=== PATIENT | male | born 1960 | race Hispanic/Latino ===

== ENCOUNTER 2018-08-24 09:28 | Day surgery (SDC) | payer BC ==
[2018-08-24 09:29] VITALS: BMI 31.9
[2018-08-24] MEDS ORDERED: Sodium Chloride 0.9% 1,000 ML IV STA (09:42)
--- NOTE | 2018-08-24 09:49 | ED PDOC ---
Arrival/HPI - General Chief Complaint: Male Genitourinary Time Seen by Provider: 08/24/18 09:43 Historian: Patient - History of Present Illness Narrative History of Present Illness (Text): 08/24/18 09:47 58 y/o male, pmh including kidney stone, nkda, c/o rt. flank pain x 5 days. Pt. stated that he was diagnosed with 2mm ureter stone about 5 days ago, seen at the [facility] [place], following up with Dr. Lizette Flores and told to come to the ER today for KUB and further evaluation. Pt. stated that he had pain again on and off today, told to come to the ER for evaluation. Pt. has no fever or chills, no chest pain or shortness of breath, no night sweat, no rash, no dizziness, no change in vision, no other medical or psychological complaints. Past Medical History - Provider Review Nursing Documentation Reviewed: Yes - Infectious Disease Hx of Infectious Diseases: None - Tetanus Immunization Tetanus Immunization: Up to Date - Past Medical History Past Medical History: No Previous - Cardiac Hx Hypertension: Yes - Renal Hx Kidney Stones: Yes - Psychiatric Hx Depression: No Hx Substance Use: No - Past Surgical History Past Surgical History: No Previous - Surgical History Hx Orthopedic Surgery: Yes (Right shoulder replacement) - Suicidal Assessment Feels Threatened In Home Enviroment: No Family/Social History - Physician Review Nursing Documentation Reviewed: Yes Family/Social History: Unknown Family HX Smoking Status: Never Smoked Hx Alcohol Use: No Hx Substance Use: No Hx Substance Use Treatment: No Allergies/Home Meds Allergies/Adverse Reactions: Allergies No Known Allergies Allergy (Verified 08/24/18 09:34) Home Medications: Home Meds Medication Instructions Recorded Confirmed Lisinopril [Zestril] 10 mg PO DAILY 08/24/18 08/24/18 Tamsulosin [Flomax] 0.4 mg PO DAILY 08/24/18 08/24/18 Review of Systems - Review of Systems Constitutional: absent: Fatigue, Fevers Eyes: absent: Vision Changes ENT: absent: Hearing Changes Respiratory: absent: SOB, Cough Cardiovascular: absent: Chest Pain Gastrointestinal: absent: Abdominal Pain, Nausea, Vomiting Genitourinary Male: absent: Dysuria, Frequency, Hematuria, Urinary Output Changes Musculoskeletal: Other (+rt. flank pain). absent: Arthralgias, Back Pain, Neck Pain, Joint Swelling, Myalgias Skin: absent: Rash, Pruritis Neurological: absent: Headache, Dizziness Psychiatric: absent: Anxiety, Depression, Suicidal Ideation Physical Exam Vital Signs Reviewed: Yes Vital Signs Temp Pulse Resp BP Pulse Ox 08/24/18 09:31 97.9 F 77 18 141/85 98 Temperature: Afebrile Blood Pressure: Normal Pulse: Regular Respiratory Rate: Normal Appearance: Positive for: Well-Appearing, Non-Toxic, Comfortable Pain Distress: Moderate Mental Status: Positive for: Alert and Oriented X 3 - Systems Exam Head: Present: Atraumatic, Normocephalic Pupils: Present: PERRL Extroacular Muscles: Present: EOMI Conjunctiva: Present: Normal Mouth: Present: Moist Mucous Membranes Neck: Present: Normal Range of Motion Respiratory/Chest: Present: Clear to Auscultation, Good Air Exchange. No: Respiratory Distress, Accessory Muscle Use Cardiovascular: Present: Regular Rate and Rhythm, Normal S1, S2. No: Murmurs Abdomen: No: Tenderness, Distention, Peritoneal Signs, Rebound, Guarding Back: Present: Normal Inspection, CVA Tenderness (rt. ). No: Midline Tenderness, Paraspinal Tenderness, Pain with Leg Raise, Decubitus Ulcer Upper Extremity: Present: Normal Inspection. No: Cyanosis, Edema Lower Extremity: Present: Normal Inspection. No: Edema Neurological: Present: GCS=15, CN II-XII Intact, Speech Normal, Motor Func Grossly Intact, Normal Cerebellar Funct, Gait Normal, Memory Normal Skin: Present: Warm, Dry, Normal Color. No: Rashes Psychiatric: Present: Alert, Oriented x 3, Normal Insight, Normal Concentration Medical Decision Making ED Course and Treatment: 08/24/18 09:50 -Labs -KUB -IVF/toradol -Observe and reassess 08/24/18 11:30 -KUB xray No acute findings. See above. -Labs are non significant with bun 25 and creatinine 1.6 -UA show no UTI - 08/24/18 11:35 -I spoke to Dr. Lizette Flores, discussed about the case and stated that he know about this case, he is planning to take the patient to the same day surgery for further evaluation. -I discussed with the patient and he agreed with Dr. Flores's plan of care. - RAD Interpretation Radiology Orders: 08/24/18 09:43 ABDOMEN (FLAT PLATE) 1VIEW [RAD] Stat Date of service: 08/24/2018 HISTORY: rt. flank pain, 2mm ureter stone? COMPARISON: None available. TECHNIQUE: 1 view obtained. FINDINGS: BOWEL: Nonobstructive bowel gas pattern. BONES: Degenerative changes. OTHER FINDINGS: No coarse calcification along the renal or ureteral course appreciated. Tiny right pelvic calcification favored to reflect phlebolith. IMPRESSION: No acute findings. See above. Enrollment Management Vice President: Radiologist - Medication Orders Current Medication Orders: Sodium Chloride (Sodium Chloride 0.9%) 1,000 mls @ 999 mls/hr IV .Q1H1M STA Stop: 08/24/18 10:42 Discontinued Medications Ketorolac Tromethamine (Toradol) 30 mg IVP STAT STA Stop: 08/24/18 09:43 - PA / CHARTER COACH DRIVER / Resident Statement MD/DO has reviewed & agrees with the documentation as recorded. Disposition/Present on Arrival - Present on Arrival Any Indicators Present on Arrival: No History of DVT/PE: No History of Uncontrolled Diabetes: No Urinary Catheter: No History of Decub. Ulcer: No History Surgical Site Infection Following: None - Disposition Have Diagnosis and Disposition been Completed?: Yes Diagnosis: Flank pain, Renal pain Disposition: HOSPITALIZED Disposition Time: 11:28 Patient Plan: Admission, Transfer To ([facility]) Patient Problems: Current Active Problems Problem Status Onset Flank pain Acute Renal pain Acute Condition: STABLE Forms: Creator Up (Frisian)
[2018-08-24 10:09] LABS: BASO # 0.02 K/mm3 (0.0-2.0); BASO % 0.3 % (0.0-3.0); EOS % 0.6 % (1.5-5.0); HEMOGLOBIN 16.2 g/dL (14.0-18.0); LYMPH # 1.4 (1.2-3.4); LYMPH % 22.1 % (22.0-35.0); MEAN CELL VOLUME 84.3 fl (80.0-105.0); MEAN CORPUSCULAR HEMOGLOBIN 29.2 pg (25.0-35.0); MEAN CORPUSCULAR HGB CONC 34.6 g/dl (31.0-37.0); MEAN PLATELET VOLUME 9.9 fl (7.0-11.0); MONO # 0.7 (0.1-0.6); MONO % 11.8 % (1.0-6.0); RBC 5.55 10^6/uL (3.5-6.1); RED CELL DISTRIBUTION WIDTH 13.2 % (11.5-14.5); WHITE BLOOD COUNT 6.3 10^3/uL (4.5-11.0)
[2018-08-24 10:14] LABS: INR 1.02; PARTIAL THROMBOPLASTIN TIME 31.5 Seconds (26.9-38.3); PROTHROMBIN TIME 11.5 SECONDS (9.4-12.5)
[2018-08-24 10:17] LABS: ALB/GLOB RATIO 1.5 (1.1-1.8); ALBUMIN 4.4 g/dL (3.0-4.8); CALCIUM 9.8 mg/dL (8.4-10.5)
--- NOTE | 2018-08-24 11:21 | RAD ---
Date of service: 08/24/2018 HISTORY: rt. flank pain, 2mm ureter stone? COMPARISON: None available. TECHNIQUE: 1 view obtained. FINDINGS: BOWEL: Nonobstructive bowel gas pattern. BONES: Degenerative changes. OTHER FINDINGS: No coarse calcification along the renal or ureteral course appreciated. Tiny right pelvic calcification favored to reflect phlebolith. IMPRESSION: No acute findings. See above.
[2018-08-24 11:40] LABS: PH,URINE 5.5 (4.7-8.0); URINE BILIRUBIN NEGATIVE (NEGATIVE); URINE BLOOD NEGATIVE (NEGATIVE); URINE GLUCOSE (UA) NEGATIVE (NEGATIVE); URINE LEUKOCYTE ESTERASE NEGATIVE Leu/uL (NEGATIVE); URINE PROTEIN NEGATIVE mg/dL (<30 mg/dL); URINE UROBILINOGEN 0.2 E.U./dL (<1 E.U./dL)
[2018-08-24 11:42] LABS: URINE APPEARANCE CLEAR (CLEAR); URINE COLOR YELLOW (YELLOW)
--- NOTE | 2018-08-24 13:25 | CARD ---
APPROVED REPORT Date of service: 08/24/2018 EKG Measurement Heart [id number] <Conclusion> Normal sinus rhythm Normal ECG
[2018-08-24] MEDS ORDERED: Iohexol 240 (50 ml) ONE (13:51)
[2018-08-24] MEDS ORDERED: cefTRIAXone (Rocephin) 1 gm Inj ONE (13:51)
[2018-08-24] MEDS ORDERED: Lidocaine 2% Jelly (Uro-Jet) ONE (13:51)
[2018-08-24] MEDS ORDERED: Midazolam 2 MG/2 ML VIAL ONE (13:59)
[2018-08-24] MEDS ORDERED: Propofol 10 mg/ml Inj (20 ML) ONE (13:59)
[2018-08-24] MEDS ORDERED: HYDROmorphone 0.5 mg/0.5 ml ISec IVP PRN (14:39)
[2018-08-24 14:42] VITALS: TEMP 97.7
[2018-08-24] MEDS ORDERED: Lactated Ringer's 1,000 ML IV SCH (14:45)
[2018-08-24] MEDS ORDERED: Gentamicin 80 mg/2mL Inj. IVPB ONE (14:50)
[2018-08-24] MEDS ORDERED: Oxycodone/Acetaminophen 5/325 mg Tab PO PRN (14:53)
[2018-08-24] MEDS ORDERED: Gentamicin 80 mg in 0.9% NS 80 MG/100 ML BAG IVPB ONE (15:04)
[2018-08-24] MEDS ORDERED: HYDROmorphone 0.5 mg/0.5 ml ISec ONE (15:09)
[2018-08-24 15:58] VITALS: RESP 18; O2SAT 94
[2018-08-24 16:14] VITALS: BP 146/68; PULSE 65
--- NOTE | 2018-08-24 16:50 | RAD ---
Date of service: 08/24/2018 PROCEDURE: Fluoroscopy up to 1 hr. HISTORY: Right Kidney Stone COMPARISON: none TECHNIQUE: Standard protocol for this study/examination. FINDINGS: Total fluoroscopic time (continuous mode) utilized during the procedure 42.4 Seconds. Total exam DLP: 42.4 (MGy). IMPRESSION: Less than 1 hr fluoroscopic time utilized
--- NOTE | 2018-09-05 00:13 | PN ---
DATE: 08/24/2018 SUBJECTIVE: See the history and physical and the emergent operative note. Postop, the patient is status post a cystoscopy, ureteroscopy, stone basketing, and insertion with dangles. There are no complications. The patient is currently resting comfortably. PHYSICAL EXAMINATION: VITAL SIGNS: Within normal limits. We explained all the findings to the patient and the plan is to discharge home with the dangle attached to the tape, and the patient will remove it, will be in touch in 24 hours. Orville Flores MD
--- NOTE | 2018-09-05 01:32 | HP ---
DATE OF EXAM: 08/24/2018 UROLOGY EMERGENCY ADMISSION HISTORY AND PHYSICAL This is actually a repeat of the urology emergency admission. HISTORY OF PRESENT ILLNESS: Mr. Koehler is a very pleasant gentleman who I initially met on 08/22/2018, where he had a kidney stone. It is relatively a small stone, it is 2 mm, but he is having severe ongoing pain. He actually also has a wedding coming up this week on Wednesday. So we have discussed options, we have been trying to hope that the stone will pass, but it has not passed. He is intermittently having pain. So after discussing the options, he is being brought in today for an emergency cystoscopy, ureteroscopy, stone basketing and possible laser. See the addendum at the end of this note. PAST MEDICAL AND SURGICAL HISTORY: As listed in chart. No history of an WI or CVA. He has had multiple surgeries on his shoulder. 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 He has two children I believe, one is actually a buckle attacher. Otherwise unremarkable social history. REVIEW OF SYSTEMS: No weight loss, chest pain, or shortness of breath, just the recent illness that going on here now. MEDICATIONS: See chart. ALLERGIES: SEE CHART. PHYSICAL EXAMINATION GENERAL: A well-nourished male, he is currently resting reasonably comfortably on the gurney. VITAL SIGNS: Noted. LUNGS: Clear. HEART: S1 and S2. ABDOMEN: Overall soft and nontender. No flank masses are noted. GENITOURINARY: He has normal male phallus. There are no testicular masses. RECTAL: A 20-gram prostate, soft and smooth. LABORATORY DATA: See chart. CT scan reports see noted. I have a copy of the CT scan, it was not actually done in this hospital. It notes the presence of a 2 mm stone, it does not note anything else significant, I have a copy. I believe there may have been some left-sided punctate stones on the left side. The pain here is on the right side and the stone is on the right side and it is one stone. DIAGNOSES: Urolithiasis, hematuria, intermittent and severe renal colic with a 2 mm obstructing stone with hydronephrosis. We discussed the options, we are trying to follow the patient. After discussing the options it looks as though it is not getting better, he is having ongoing pain, so we discussed the risks, benefits, and treatment alternatives and the plan is as follows; we are going to admit him emergently, we are going to do a cystoscopy, ureteroscopy, stone basketing and possible laser lithotripsy depending on what we find and then we will put a stent which is dangled. I explained to the patient about taking it out. He describes to me how he is able to pull out a packing from his nose and he will be able to do it, no problem at all. Further plans will follow. ADDENDUM: We found the stone, we removed the stone, we basketed it with no problem and we sent it to the lab. He is left with a stent and it was a double J. Orville Flores MD
--- NOTE | 2018-09-05 07:45 | OP ---
PROCEDURE DATE: 08/24/2018 PREOPERATIVE DIAGNOSES: Urolithiasis, severe renal colic secondary to a 2 mm obstructing distal ureteral stone, hematuria, right hydronephrosis, intermittent flank pain. POSTOPERATIVE DIAGNOSES: Urolithiasis, severe renal colic secondary to a 2 mm obstructing distal ureteral stone, hematuria, right hydronephrosis, intermittent flank pain. PROCEDURE: Cystoscopy, right ureteroscopy, right stone basketing with distal ureteral stone, and placement of right double J stent with dangle. COMPLICATIONS: There were no complications. SURGEON: Orville Flores MD BLOOD LOSS: Less than 10 mL. INDICATIONS: See history and physical. This is an emergency admission and emergency procedure. We brought the patient in for the above-listed procedure. We discussed risks and benefits. We discussed observing the patient. If it is a 2 mm stone, it should pass. However, he is really having a lot of pain, nausea sometimes intermittently, and it is not resolving, and he has been trying to flood himself, and he has an upcoming wedding this week that he would like to try to get to. So after discussing the various options and following him since over the weekend, he is now here for the above-listed procedure. UROLOGY OPERATIVE FINDINGS: 1. Normal anterior urethra, no strictures. 2. Verumontanum is moderately visually occlusive, normal for age, about 2 to 3 cm. 3. Right in the distal ureter is the stone almost like piercing its head through, and we have got to push it up a little bit just to get the scope and the stent in, but we were able to successfully get it retrieved and sent it off to the lab. There were no other stones identified. No complications. It actually went relatively smoothly. DESCRIPTION OF PROCEDURE: After discussing the options, the patient was prepped in the usual sterile fashion. He was on the table in lithotomy position. Time-out was called confirming the patient and positioning. Risks and benefits were discussed at length. Timeout was called for antibiotic prophylaxis. We introduced the cystoscope by urethra. No anterior urethra. No strictures. Verumontanum is moderately visually occlusive, within normal limits. We identified the ureteral orifice. It looked like we could see the orifice itself is a little bit swollen, and the stone was right behind there. At this point, we put a wire in with slight difficulty. put the wire up without manipulating the stone or pushing the stone, just we get the wire in. I now removed the cystoscope and confirmed position with fluoroscopic imaging. We now went with the semirigid ureteroscope. We go adjacent to the wire, so I felt the safety wire up to the kidney. I now identified the stone. I actually go past the stone, try not to manipulate it too much but I do push it up just make room for the basket. We grabbed it with a basket. We removed the stone. I do want to mention at this point we then investigated further, went up further with the ureter after we removed everything. We now looked back, and there actually showed there is second stone or third stone or any other stones there. We went up half way up the ureter. I do not see any abnormalities, had the wire in good location, put the double J stenting, confirmed our positioning. Films were submitted to the radiologist. The patient tolerated the procedure without complication. We emptied the bladder. We secured the double J stent to the penis with dangles. There were no complications. I do want to mention a rectal exam was done at this point, 20 to 30 g prostate, soft and smooth. The patient tolerated the procedure well without complication. Orville Flores MD
== END 2018-08-24 17:45 | disposition home or self-care (01) ==
LOC: ED 09:28 → SDS 12:05
PROVIDERS: ATTEND Urology
DX: N13.2 Hydronephrosis with renal and ureteral calculous obstruction (principal); I10 Essential (primary) hypertension; Z87.442 Personal history of urinary calculi; Z96.611 Presence of right artificial shoulder joint
CPT/HCPCS: 52332; 52352; 74018; 74420; 80053; 81003; 83690; 85025; 85610; 85730; 88300; 93005; 96361; 96374; 99284; C1758; C1769; C2617; J0696; J1170; J1580 ×2; J1885; J2250; J2405; J2704; J2765; J3010; J7030; J7120 ×2; Q9966

== ENCOUNTER 2018-09-21 10:07 | Emergency (ER) | payer BC | END 2018-09-21 13:31 | disposition short-term general hospital (02) | LOC: ED 10:07 ==